=== PATIENT | female | born 1945 | race Caucasian/White ===

== ENCOUNTER 2019-06-11 13:53 | Outpatient (RCR) | payer MEDICARE, BC, SELFPAY | END 2019-07-01 23:59 | disposition home or self-care (01) | LOC: SPT 13:53 | PROVIDERS: Family Provider Internal Medicine; PCP Nurse Practitioner Family; Referring Provider Specialist; Visit Provider Specialist | DX: R42 Dizziness and giddiness (principal) | CPT/HCPCS: 95992; 97162 ==

== ENCOUNTER → 2019-07-21 13:52 | Outpatient (BNVA) | payer MEDICARE, BC, SELFPAY | PROVIDERS: Family Provider Internal Medicine; PCP Nurse Practitioner Family; Visit Provider Nurse Practitioner | DX: K92.1 Melena (principal); E04.9 Nontoxic goiter, unspecified; R10.32 Left lower quadrant pain; K57.30 Diverticulosis of large intestine without perforation or abscess without bleeding | CPT/HCPCS: 80053; 81000; 84443; 85025 ==

== ENCOUNTER 2019-07-29 07:55 | Outpatient (CLI) | payer MEDICARE, BC, SELFPAY ==
--- NOTE | 2019-07-29 08:05 | CT_ITS ---
WS: [id number] CT ABDOMEN PELVIS TECHNIQUE: Noncontrast CT of the abdomen and pelvis with coronal and sagittal reformatted images. CLINICAL INFORMATION: left lower pain COMPARISON: None. DLP: 1161.[address] scans at [facility] use at least one of these dose optimization techniques: automat ed exposure control; mA and/or kV adjustment per patient size (includes targeted exams where dose is matched to clinical indication); or iterative reconstruction. FINDINGS: Noncontrast liver is normal. A few low-attenuation lesions in the liver too small to characterize but likely hepatic cysts. Largest in the dome of the liver measuring 7 mm. Gallbladder is normal. Adrena l glands are normal. No hydronephrosis. No obstructing renal or ureteral calculi. Normal GE junction. Hazy atelectasis in the lung bases. Left pleural thickening. Normal spleen. Nonco ntrast pancreas is normal. Normal caliber abdominal aorta. Aortic calcification. No evidence of small or large bowel obstruction. Sigmoid colon appears normal.A few shoddy periaortic lymph nodes. The largest measuring 8 mm likely r eactive. No inguinal lymphadenopathy. Disc space narrowing L5-S1 with vacuum disc phenomenon. CT/CT abdomen pelvis wo con [id number] IMPRESSION: 1. Sigmoid colon is normal in appearance. No evidence of small or large bowel obstruction. 2. A few low-attenuation lesions in the liver nonspecific but likely hepatic c ysts. 3. No hydronephrosis. No obstructing renal or ureteral calculi. 4. Hazy atelectasis in the lung bases. 5. Sigmoid colon is normal in appearance. No evidence of small or large bowel obstruction. 6. Normal caliber abdominal aorta. 7. 8 mm left periaortic lymph node nonspecific but likely reactive.
[2019-07-29] MEDS: iohexol 300 mg/mL 50 mL Btl PO (09:22)
== END 2019-07-29 07:56 | disposition home or self-care (01) ==
PROVIDERS: Family Provider Internal Medicine; PCP Nurse Practitioner; Visit Provider Nurse Practitioner
DX: R10.32 Left lower quadrant pain (principal); K76.9 Liver disease, unspecified; J98.11 Atelectasis
CPT/HCPCS: 74176

== ENCOUNTER → 2019-11-05 13:41 | Outpatient (BNVA) | payer MEDICARE, BC, SELFPAY | PROVIDERS: Family Provider Internal Medicine; PCP Nurse Practitioner; Visit Provider Nurse Practitioner Family | DX: E06.1 Subacute thyroiditis (principal); R53.82 Chronic fatigue, unspecified; F32.9 Major depressive disorder, single episode, unspecified; Z68.29 Body mass index [BMI] 29.0-29.9, adult; F17.211 Nicotine dependence, cigarettes, in remission; Z79.899 Other long term (current) drug therapy; E55.9 Vitamin D deficiency, unspecified | CPT/HCPCS: 80053; 82306; 82607; 84443; 85025 ==

== ENCOUNTER → 2020-05-07 12:36 | Outpatient (BNVA) | payer MEDICARE, BC, SELFPAY | PROVIDERS: Family Provider Internal Medicine; PCP Nurse Practitioner; Visit Provider Nurse Practitioner Family | DX: Z20.822 Contact with and (suspected) exposure to COVID-19 (principal) | CPT/HCPCS: 87635 ==

== ENCOUNTER → 2020-12-07 15:33 | Outpatient (BNVA) | payer MEDICARE, BC, SELFPAY | PROVIDERS: Family Provider Internal Medicine; PCP Nurse Practitioner; Visit Provider Nurse Practitioner Family | DX: E06.1 Subacute thyroiditis (principal); R07.0 Pain in throat; R53.83 Other fatigue; K57.33 Diverticulitis of large intestine without perforation or abscess with bleeding | CPT/HCPCS: 80053; 82306; 82607; 83540; 83615; 84443; 85025 ==

== ENCOUNTER → 2021-07-05 15:14 | Outpatient (BNVA) | payer MEDICARE, BC, SELFPAY | PROVIDERS: Family Provider Internal Medicine; PCP Nurse Practitioner; Visit Provider Nurse Practitioner Family | DX: E55.9 Vitamin D deficiency, unspecified (principal); W57.XXXA Bitten or stung by nonvenomous insect and other nonvenomous arthropods, initial encounter; Z91.89 Other specified personal risk factors, not elsewhere classified; E06.1 Subacute thyroiditis; R53.83 Other fatigue; R13.10 Dysphagia, unspecified; R07.0 Pain in throat | CPT/HCPCS: 80053; 82306; 85025; 86618; 86666; 86757 ==

== ENCOUNTER 2021-07-20 10:31 | Outpatient (CLI) | payer MEDICARE, BC, SELFPAY ==
--- NOTE | 2021-07-20 11:00 | CT_ITS ---
WS: [id number] CT NECK TECHNIQUE: Contrast-enhanced CT of the neck with coronal and sagittal reformatted images. CLINICAL INFORMATION: E06.1 - Subacute thyroiditis COMPARISON: None. DLP: 258.[address] scans at [facility] use at least one of these dose optimization techniques: automated e xposure control; mA and/or kV adjustment per patient size (includes targeted exams where dose is matc hed to clinical indication); or iterative reconstruction. FINDINGS: Beam hardening artifact from dental artifact degrades images at the tongue base. Parotid glands are n ormal. Submandibular glands are normal. Small polyp or retention cyst within the RIGHT vallecula santa uring 4.5 mm. Recommend direct visualization. Normal epiglottis. Normal glottis. Normal piriform sinu ses. Normal subglottic airway. Normal posterior nasopharynx. Normal parapharyngeal fat. Mastoid air cells are well aerated. Normal p aranasal sinuses. Fibrosis in the lung apices. Normal thyroid gland enhancement. A few tiny thyroid nodules largest in the LEFT measuring 3 mm. 2.5 mm nodule RIGHT posterior thyroid gland. No cervical lymphadenopathy. CT/CT neck w con* [id number] IMPRESSION: 1. Normal salivary glands. 2. A few tiny 2- 3 mm thyroid nodules. Thyroid gland is otherwise normal in ap pearance. 3. No cervical lymphadenopathy. 4. Small polyp or retention cyst within the RIGHT vallecula measuring 4.5 mm. This can be further evaluated with direct visualization. 5. Normal posterior nasopharynx. Otherwise no evidence of supraglottic or glot tic mass.
[2021-07-20] MEDS: iohexol 350 mg/mL 100 mL Btl IV (11:05)
== END 2021-07-20 10:32 | disposition home or self-care (01) ==
LOC: RAD 10:34
PROVIDERS: Family Provider Internal Medicine; PCP Nurse Practitioner Family; Visit Provider Nurse Practitioner Family
DX: E06.1 Subacute thyroiditis (principal); R07.0 Pain in throat; R13.10 Dysphagia, unspecified; R53.83 Other fatigue; E04.2 Nontoxic multinodular goiter
CPT/HCPCS: 70491

== ENCOUNTER 2021-07-26 13:44 | Outpatient (CLI) | payer MEDICARE, BC, SELFPAY ==
--- NOTE | 2021-07-26 14:07 | US_ITS ---
WS: [id number] THYROID ULTRASOUND HISTORY: SUBACUTE THYROIDITIS COMPARISON: Neck CT 07/20/2021 Right lobe: 1.0 cm x 1.4 cm x 4.4 cm (w x ap x l). Volume: 3.4 cm3. Normal size and echotexture. No significant are dominant nodules are present. No nodules identified. Left lobe: 1.1 cm x 1.1 cm x 3.9 cm (w x ap x l). Volume: 2.4 cm3. Normal size and echotexture. No significant or dominant nodules are present. No nodules identified. Isthmus: 0.2 cm. Palpable area as directed by the patient in the LEFT neck corresponds to a benign lymph node adjacent to the submandibular gland. US/US thyroid [id number] IMPRESSION: Normal thyroid ultrasound.
== END 2021-07-26 13:45 | disposition home or self-care (01) ==
LOC: RAD 13:47
PROVIDERS: PCP Nurse Practitioner Family; Visit Provider Nurse Practitioner Family
DX: E06.1 Subacute thyroiditis (principal)
CPT/HCPCS: 76536

== ENCOUNTER 2021-09-19 08:09 | Outpatient (CLI) | payer MEDICARE, BC, SELFPAY ==
--- NOTE | 2021-09-19 08:19 | FL_ITS ---
WS: [id number] Exam: FL barium swallow [id number] Date/Time of Exam: 09/19/2021 8:20 AM Reason For Exam: CERVICALGIA/PAIN IN THROAT Fluoroscopy time: 2min [id number] minutes # of spot films: 12 Swallowing function at the level of oropharynx was normal. No sign of aspiration or penetration. Esop hagus is smooth in contour with normal motility. No sign of esophageal stricture or mass. No hiatal h ernia or gastroesophageal reflux was demonstrated. The esophagus is not displaced. FL/FL barium swallow [id number] IMPRESSION: 1. Normal esophagram.
== END 2021-09-19 08:10 | disposition home or self-care (01) ==
PROVIDERS: PCP Nurse Practitioner Family; Visit Provider Specialist
DX: M54.2 Cervicalgia (principal); R07.0 Pain in throat
CPT/HCPCS: 74220

== ENCOUNTER 2021-09-28 15:25 | Outpatient (CLI) | payer MEDICARE, BC, SELFPAY ==
--- NOTE | 2021-09-28 16:02 | MR_ITS ---
WS: [id number] MRI NECK WITH CONTRAST TECHNIQUE: Noncontrast axial T1, axial T2 FSE fat sat, coronal T2 fat sat, coronal T1, coronal T1 fat sat, sagittal T2 fat sat, plus contrast enhanced coronal, sagittal, and axial T1 fat sat images obta ined. CLINICAL INFORMATION: CERVICALGIA/PAIN IN THROAT COMPARISON: CT neck July 20, 2021. FINDINGS: Edema involving the LEFT C3-C4 facets with surrounding soft tissue edema compatible with sy novitis. This is likely inflammatory or degenerative. Associated enhancement. Recommend correlation f or LEFT dorsal axial neck pain. Again seen is the small polyp or retention cyst within the RIGHT vallecula unchanged from previous me asuring 5 mm. Small amount of peripheral enhancement. Normal epiglottis. Parotid glands are normal in appearance. Normal submandibular glands. Normal posterior nasopharynx. Normal parapharyngeal fat. No rmal glottis and subglottic airway. No cervical lymphadenopathy. Tiny disc protrusions in the cervical spine at C5-C6 and C6-C7. Normal p osterior fossa. Normal vascular flow voids at the skull base. Mastoid air cells are well aerated. Thy roid gland not well evaluated due to motion artifact MR/MR orbit face neck wo/w* [id number] IMPRESSION: 1. Small T2 hyperintense likely retention cyst or polyp in the RIGHT vallecula with peripheral enhancement. This is unchanged since the recent CT. Recommend direct visualization if this has not been performed to exclude neoplasm. 2. Edema involving the LEFT C3-C4 facets with surrounding soft tissue edema co mpatible with synovitis. This is likely inflammatory or degenerative. Associate d enhancement. Recommend correlation for LEFT dorsal axial neck pain. 3. Otherwise no evidence of supraglottic or glottic mass. 4. Normal salivary glands. 5. No cervical lymphadenopathy. 6. Small disc bulges in the cervical spine at C5-C6 and C6-C7.
[2021-09-28] MEDS: gadobenate dimeglumine 20 mL vial IV (17:05)
== END 2021-09-28 15:26 | disposition home or self-care (01) ==
PROVIDERS: PCP Nurse Practitioner Family; Visit Provider Specialist
DX: R07.0 Pain in throat (principal)
CPT/HCPCS: 70543

== ENCOUNTER 2021-10-18 11:30 | Outpatient (CLI) | payer MEDICARE, BC, SELFPAY ==
--- NOTE | 2021-10-18 13:22 | ECG_ITS ---
[facility] Test Date: 2021-10-18 Pat Name: Erika Rice Department: Room: Gender: Female Electrical Tech/Project Manager: : 1945 Requested By: Alex Saucedo Order Number: [id number] Randy MD: Jesus Alcaraz M.D. Measurements Intervals [place] Rate: 76 P: 75 WA: 155 QRS: 66 QRSD: 71 T: 62 QT: 358 QTc: 403 Interpretive Statements SINUS RHYTHM LOW QRS VOLTAGE IN PRECORDIAL LEADS [QRS DEFLECTION < 1.0 mV IN CHEST LEADS] WARNING: DATA QUALITY MAY AFFECT INTERPRETATION Compared to ECG 09/15/2016 19:40:13 Low QRS voltage now present Electronically Signed On 10-18-2021 21:04:15 CDT by Jesus Alcaraz M.D. [email or web address]
== END 2021-10-18 11:31 | disposition home or self-care (01) ==
LOC: RT 11:39
PROVIDERS: PCP Nurse Practitioner Family; Visit Provider Specialist
DX: R13.10 Dysphagia, unspecified (principal); M54.2 Cervicalgia
CPT/HCPCS: 93005

== ENCOUNTER → 2022-02-02 11:10 | Outpatient (BNVA) | payer MEDICARE, BC, SELFPAY | PROVIDERS: PCP Nurse Practitioner Family; Visit Provider Nurse Practitioner Family | DX: J40 Bronchitis, not specified as acute or chronic (principal); R06.2 Wheezing; R05.8 Other specified cough | CPT/HCPCS: 71046; 87486; 87581; 87633 ==

== ENCOUNTER → 2022-02-08 10:54 | Outpatient (BNVA) | payer MEDICARE, BC, SELFPAY | PROVIDERS: PCP Nurse Practitioner Family; Visit Provider Nurse Practitioner Family | DX: J40 Bronchitis, not specified as acute or chronic (principal) | CPT/HCPCS: 71046; 80053; 85007; 85025 ==

== ENCOUNTER 2022-02-28 08:54 | Emergency (ER) | payer MEDICARE, BC, SELFPAY ==
[2022-02-28 08:55] VITALS: BP 148/63; PULSE 90; RESP 19; TEMP 36.8; O2SAT 98; BMI 28.3
[2022-02-28 09:05] VITALS: BP 130/83; PULSE 98; RESP 18; O2SAT 95
--- NOTE | 2022-02-28 09:18 | XRR_ITS ---
PROCEDURE INFORMATION: Exam: XR Chest Exam date and time: 02/28/2022 9:27 AM Age: 77 years old Clinical indication: Cough TECHNIQUE: Imaging protocol: Radiologic exam of the chest. Views: 1 view. COMPARISON: CR XR chest 2V* [id number] 02/08/2022 10:53 AM FINDINGS: Lungs: No focal airspace disease. Pleural spaces: Unremarkable. No pleural effusion. No pneumothorax. Heart/Mediastinum: Cardiomediastinal silhouette is within normal limits. Bones/joints: Unremarkable. XR/XR chest 1V portable [id number] IMPRESSION: No acute cardiopulmonary abnormality.
[2022-02-28 09:24] LABS: Basophils # 0.1 10^3/uL (0.0-0.1); Basophils % 0.8 %; Eosinophils # 1.7 10^3/uL (0.0-0.8); Eosinophils % 19.3 %; Hemoglobin 14.4 g/dL (11.5-15.3); Lymphocytes % 22.6 %; Mean Corpuscular Hemoglobin 31.9 pg (28.0-34.0); Mean Corpuscular Volume 99.6 fl (81-99); Mean Platelet Volume 9.9 fL (7.4-10.4); Monocytes # 0.6 10^3/uL (0.2-0.9); Monocytes % 6.5 %; Neutrophils # 4.55 10^3/uL (1.8-7.7); Neutrophils % 50.6 %; Nucleated Red Blood Cells % 0 %; Platelet Count 245 10^3/cmm (130-400); Red Blood Count 4.52 10^6/uL (4.1-5.3)
[2022-02-28] MEDS: benzonatate 100 mg Capsule 200 MG PO (09:27)
[2022-02-28] MEDS: dexamethasone 10 mg/mL INJ IVP (09:27)
[2022-02-28] MEDS: ipratropium-albuterol 3 mL Neb 9 ML INHALATION (09:34)
[2022-02-28 09:37] VITALS: PULSE 84; RESP 20; O2SAT 96
[2022-02-28 09:44] LABS: Alanine Aminotransferase 17 U/L (0-33); Albumin Level 4.2 g/dL (3.5-5.2); Alkaline Phosphatase 84 U/L (35-105); Anion Gap 13.8 (5-19); Aspartate Amino Transferase 18 U/L (0-32); Blood Urea Nitrogen 8 mg/dL (8-23); Calcium 8.9 mg/dL (8.5-10.5); Carbon Dioxide 29 mmol/L (22-29); Chloride 98 mmol/L (98-107); Creatinine Clr Calc Pharmacy 61.4308; Globulin 2.8 g/dL (1.3-4.6); Glucose 103 mg/dL (65-115); Magnesium 1.9 mg/dL (1.7-2.3); NT Pro B Type Natriuretic Pept 161 pg/mL (0-450); Osmolality Calculated 283 mOsm/kg (285-295); Potassium 3.8 mmol/L (3.5-5.1); Sodium 137 mmol/L (136-145); Total Bilirubin 0.3 mg/dL (0.15-1.2)
[2022-02-28 09:46] VITALS: BP 130/83; PULSE 98; RESP 18; O2SAT 96
[2022-02-28 09:50] VITALS: PULSE 83
--- NOTE | 2022-02-28 09:50 | W.ED.SOB ---
HPI - SOB/Dyspnea General: Chief Complaint: Shortness of Breath/Dyspnea Stated Complaint: Chest Pain/SOB Time Seen by Provider: 02/28/22 09:00 History of Present Illness: HPI Narrative: 77-year-old female who presents with shortness of breath and wheezing. The patient states she has been sick for a month. She has had a cough which has been nonproductive. She has had persistent wheezing despite taking steroids and using albuterol and a nebulizer. She completed a course of Levaquin. She states she stopped taking the steroids because she did not like the way it made her feel. She denies fever. She denies chest pain. She states she does have increased shortness of breath with activity as well as associated orthopnea. She denies peripheral edema. No prior history of DVT or pulmonary emboli. No prior history of COPD or emphysema. She denies a cardiac history. They have not tested her for COVID or flu throughout the course of her illness. Associated symptoms: Reports fever(s); Deny abdominal pain, chest pain, nausea, palpitations or vomiting Review of Systems Const: Reports: fever(s); Denies: chills, body aches or change in appetite Eyes: Denies: change in vision, eye discharge or eye redness ENMT: Denies: throat pain, hoarseness, ear or mastoid pain, ear discharge, nasal discharge or nasal congestion Card: Denies: chest pain, palpitations, irregular heart rhythm or edema Resp: Reports: dyspnea, non-productive cough and wheezing GI: Denies: abdominal pain, nausea, vomiting, diarrhea, constipation or hematochezia : Denies: difficulty voiding, dysuria, urinary frequency, urinary urgency, urinary hesitancy or hematuria Musc: Denies: joint swelling, joint redness, joint warmth or joint stiffness Skin/Breast: Denies: rash Neuro: Denies: headache(s) Psych: Denies: suicidal ideation or homicidal ideation Junaid/Lymph: Denies: enlarged lymph nodes or tender lymph nodes [facility] ED PFSH: Medical History Anemia Depression Vitamin D deficiency Surgical History History of colonoscopy History of hysterectomy Family History Other Cancer Hypertension Parkinsons disease Stroke Social History Smoking and tobacco status: former smoker Quit status (tobacco): has quit using tobacco Year quit tobacco: 1994 Former quit date comment: 0.5 PPD X 35 YEARS Second hand smoke exposure: No Smoking risk assessment/counseling performed?: No Alcohol intake: never Desire information about alcohol rehabilitation?: No Counseling given: No Desire information about substance/drug rehabilitation?: No Counseling given: No Adopted: No Caregiver/support person: Yes Housing: House Marital status: service: No History of recent travel: No Current gender identity: Female Physical Exam Const: COMMON NORMALS: no acute distress and patient oriented x3 GENERAL APPEARANCE: cooperative HENMT: COMMON NORMALS: normocephalic and moist oral mucous membranes HEAD & SCALP: normocephalic Eye: COMMON NORMALS: Equal, round and reactive pupils present GENERAL EYE: appearance normal, both eyes and all related structures PUPIL: Yes Equal, round and reactive pupils present Neck/C-Spine: GENERAL: Yes normal visual inspection CERVICAL SPINE: Yes cervical ROM normal and No Cervical spine tenderness Lymph: LYMPHATIC: no lymphadenopathy noted Chest: COMMONS NORMALS: normal inspection of the chest Resp: OTHER: Diffuse expiratory wheezing in all lung castillo, breath sounds are equal bilaterally Cardio: COMMON NORMALS: regular rate, regular rhythm and No murmurs present (Cardio) RATE: regular rate RHYTHM: regular rhythm Extremity: GENERAL: No cyanosis and No edema Neuro: COMMON NORMALS: patient oriented x3, moves all extremities, no focal motor deficits and gait normal SPEECH: speech normal Psych: COMMON NORMALS: mental status grossly normal Skin: COMMON NORMALS: no rashes or lesions noted and no wounds GENERAL SKIN EXAM: no rashes or lesions noted Course Vital Signs: Vital signs: Vital Signs Temperature 98.3 F 02/28/22 08:55 Pulse Rate 88 02/28/22 11:32 Respiratory Rate 20 H 02/28/22 11:32 Blood Pressure 130/83 02/28/22 09:46 Pulse Oximetry 96 02/28/22 11:32 Oxygen Delivery Me thod 02/28/22 11:32 MDM - SOB/Dyspnea Medical Decision Making 77 old female who comes in with a 1 month history of cough, wheezing and increased difficulty breathing. The patient's already been treated with a round of steroids as well as a round of antibiotics. Today she has diffuse inspiratory and expiratory wheezing. She is not hypoxic, room air saturation is 94%. She has had an IV placed and labs obtained. She has been given IV Decadron 10 mg. She has been given an hour-long DuoNeb nebulizer treatment as well as 2 Xopenex treatments with significant improvement. She still does have expiratory wheezes but is breathing much more comfortably. I did not feel that at this time she warrants admission I feel she is stable for discharge home. I am going to place her on Decadron 4 mg twice daily. I am also getting her prescription for Symbicort inhaler to use 1 puff twice daily. I have given her Tessalon Perles 200 mg to take 3 times daily as needed for cough. I have encouraged her to use her albuterol inhaler 2 puffs every 2-4 hours as needed for shortness of breath and wheezing. She needs to return if her symptoms are worsening. She does need to get set up for follow-up with her primary care doctor. I placed a consult to social work to set her up for that. Return precautions have been discussed Lab Data 02/28/22 09:00 02/28/22 09:00 Labs/Radiology: Radiology Impressions Chest X-Ray 02/28/22 09:18 IMPRESSION: No acute cardiopulmonary abnormality. Laboratory Results WBC 9.0 10^3/uL (4.0-10.0) 02/28/22 09:00 RBC 4.52 10^6/uL (4.1-5.3) 02/28/22 09:00 Hgb 14.4 g/dL (11.5-15.3) 02/28/22 09:00 Hct 45.0 % (37.0-47.0) 02/28/22 09:00 MCV 99.6 fl (81-99) H 02/28/22 09:00 MCH 31.9 pg (28.0-34.0) 02/28/22 09:00 MCHC 32.0 g/dL (30.0-36.0) 02/28/22 09:00 RDW 13.0 % (12.1-15.1) 02/28/22 09:00 Plt Count 245 10^3/cmm (130-400) 02/28/22 09:00 MPV 9.9 fL (7.4-10.4) 02/28/22 09:00 Neut % (Auto) 50.6 % 02/28/22 09:00 Lymph % (Auto) 22.6 % 02/28/22 09:00 [place] % (Auto) 6.5 % 02/28/22 09:00 Eos % (Auto) 19.3 % 02/28/22 09:00 Baso % (Auto) 0.8 % 02/28/22 09:00 Neut # (Auto) 4.55 10^3/uL (1.8-7.7) 02/28/22 09:00 Lymph # (Auto) 2.0 10^3/uL (0.8-4.8) 02/28/22 09:00 [place] # (Auto) 0.6 10^3/uL (0.2-0.9) 02/28/22 09:00 Eos # (Auto) 1.7 10^3/uL (0.0-0.8) H 02/28/22 09:00 Baso # (Auto) 0.1 10^3/uL (0.0-0.1) 02/28/22 09:00 Nucleated RBC % (auto) 0 % 02/28/22 09:00 Nucleated RBCs # 0.0 /100WBC 02/28/22 09:00 Sodium 137 mmol/L (136-145) 02/28/22 09:00 Potassium 3.8 mmol/L (3.5-5.1) 02/28/22 09:00 Chloride 98 mmol/L (98-107) 02/28/22 09:00 Carbon Dioxide 29 mmol/L (22-29) 02/28/22 09:00 Anion Gap 13.8 (5-19) 02/28/22 09:00 BUN 8 mg/dL (8-23) 02/28/22 09:00 Creatinine 0.7 mg/dL (0.5-0.9) 02/28/22 09:00 GFR Calculation Not Reportable 02/28/22 09:00 Glucose 103 mg/dL (65-115) 02/28/22 09:00 Calculated Osmolality 283 mOsm/kg (285-295) L 02/28/22 09:00 Calcium 8.9 mg/dL (8.5-10.5) 02/28/22 09:00 Magnesium 1.9 mg/dL (1.7-2.3) 02/28/22 09:00 Total Bilirubin 0.3 mg/dL (0.15-1.2) 02/28/22 09:00 AST 18 U/L (0-32) 02/28/22 09:00 ALT 17 U/L (0-33) 02/28/22 09:00 Alkaline Phosphatase 84 U/L (35-105) 02/28/22 09:00 NT-Pro-B Natriuret Pep 161 pg/mL (0-450) 02/28/22 09:00 Total Protein 7.0 g/dL (6.6-8.7) 02/28/22 09:00 Albumin 4.2 g/dL (3.5-5.2) 02/28/22 09:00 Globulin 2.8 g/dL (1.3-4.6) 02/28/22 09:00 Influenza Type A Ag negative (Negative) 02/28/22 09:43 Influenza Type B Ag negative (Negative) 02/28/22 09:43 Discharge Plan Discharge Patient Disposition: Home Clinical Impression: Acute exacerbation of chronic obstructive airways disease Condition: Stable Prescriptions: New Decadron 4 mg tablet 4 mg PO Q12H Qty: 14 0RF Symbicort 80-4.5 mcg/actuation HFA aerosol inhaler 2 inh inhalation Q12H Qty: 10.2 0RF benzonatate 200 mg capsule 200 mg PO TID PRN (Reason: cough) Qty: 30 0RF No Action estradiol [Estrace] 1 mg tablet 1 mg PO DAILY sertraline 100 mg tablet 100 mg PO DAILY 30 Days Qty: 30 0RF albuterol sulfate [ProAir HFA] 90 mcg/actuation HFA aerosol inhaler 2 puff inhalation QID PRN (Reason: shortness of breath or wheezing) Qty: 6.7 0RF triamcinolone acetonide 0.1 % ointment 1 applic topical BID Qty: 15 0RF cholecalciferol (vitamin D3) 1,250 mcg (50,000 unit) capsule 50,000 unit PO .weekly 30 Days Qty: 4 2RF amoxicillin-pot clavulanate 875-125 mg tablet 1 tab PO BID Qty: 20 0RF promethazine-DM 6.25-15 mg/5 mL syrup 5 - 10 ml PO Q6H PRN (Reason: cough) Qty: 240 0RF prednisone 20 mg tablet 20 mg PO BID Qty: 20 0RF albuterol sulfate [ProAir HFA] 90 mcg/actuation HFA aerosol inhaler 2 puff inhalation Q4H PRN (Reason: shortness of breath or wheezing) Qty: 6.7 0RF levofloxacin 750 mg tablet 750 mg PO DAILY Qty: 7 0RF prednisone 20 mg tablet 20 mg PO BID Qty: 10 0RF albuterol sulfate 2.5 mg /3 mL (0.083 %) solution for nebulization 2.5 mg inhalation QID PRN (Reason: shortness of breath or wheezing) Qty: 75 0RF (DME) compressor, for nebulizer Device See Rx Instructions .Route Qty: 1 0RF Rx Instructions: As directed (DME) nebulizer accessories Kit See Rx Instructions .Route Qty: 1 0RF Rx Instructions: As directed budesonide 1 mg/2 mL suspension for nebulization 0.5 mg inhalation BID 14 Days Qty: 28 0RF Rx Instructions: 340B fluticasone propionate [Flovent HFA] 110 mcg/actuation HFA aerosol inhaler 2 puff inhalation BID Qty: 12 2RF promethazine-DM 6.25-15 mg/5 mL syrup 5 - 10 ml PO Q6H PRN (Reason: cough) Qty: 240 0RF amoxicillin-pot clavulanate 875-125 mg tablet 1 tab PO BID Qty: 20 0RF potassium chloride [Klor-Con M20] 20 mEq tablet,ER particles/crystals 20 meq PO DAILY Qty: 30 2RF Discharge Orders: Discharge ED (Routine); Ordered 02/28/22 Ordered By: Denisse Baird Referrals: Kianna Ayala FNP-C [Primary Care Provider] - Discharge Diet: Advance as tolerated Discharge Activity: Resume usual activity Patient Instructions: COPD (Chronic Obstructive Pulmonary Disease) (DC), Opioid Safety, Pain Management Activity Restrictions/Additional Instructions: Take the prednisone daily in the morning. Use the Symbicort inhaler 1 puff twice daily. Continue albuterol inhaler 2 puffs every 4 hours and as needed. Take the Tessalon 3 times daily as needed for cough. Return if her symptoms are worsening. Home to rest. Follow-up this week with your primary care doctor. Coding Level of Care Code ED Blow Machine Tender Starch Spraying for Chg Fwd Exam Comprehensive
[2022-02-28 10:20] LABS: Influenza A by IFA negative (Negative); Influenza B by IFA negative (Negative)
[2022-02-28] MEDS: levalbuterol 1.25 mg/3 mL Neb 2.5 MG INHALATION (11:31)
[2022-02-28 11:32] VITALS: PULSE 88; RESP 20; O2SAT 96
--- NOTE | 2022-03-02 10:24 | DCPLANNER ---
Addendum entered by Eugenia Hood 03/31/22 14:42: Patient had a follow up appointment scheduled at [facility] with Dr. Alba to establish care - patient did attend appointment. Original Note: credit office manager had message to speak with patient about getting established with a primary care physician. credit office manager spoke with patient, she stated that she would like to have a new primary care physician. credit office manager called [facility], spoke with Silvana, gave clinic patients information. A follow up appointment was scheduled for March at 1:[address] Alba. credit office manager called patient and gave patient the appointment information.
== END 2022-02-28 13:25 | disposition home or self-care (01) ==
PROVIDERS: Emergency Provider Emergency Medicine; PCP Nurse Practitioner Family
DX: J44.1 Chronic obstructive pulmonary disease with (acute) exacerbation (principal); Z87.891 Personal history of nicotine dependence
CPT/HCPCS: 71045; 80053; 83735; 83880; 85025; 87804; 94640; 96374; 99285; J1100; J7614

== ENCOUNTER 2022-03-01 15:21 | Outpatient (CLI) | payer MEDICARE, BC, SELFPAY ==
--- NOTE | 2022-03-01 16:00 | CT_ITS ---
WS: [id number] CT CHEST TECHNIQUE: Noncontrast CT of the chest with coronal and sagittal reformatted images. CLINICAL INFORMATION: J40 - Bronchitis, not specified as acute or chronic COMPARISON: DLP: 659.[address] scans at [facility] use at least one of these dose optimization techniques: automated e xposure control; mA and/or kV adjustment per patient size (includes targeted exams where dose is matc hed to clinical indication); or iterative reconstruction. FINDINGS: Mild chronic emphysematous changes. A few calcified granulomas. No focal pneumonia or pleural fluid. Minimal tree-in-bud opacities RIGHT middle lobe and both lower lobes. Slight bronchiectasis. Normal caliber thoracic aorta. No mediastinal or hilar lymphadenopathy. No axillary lymphadenopathy. Adrenal glands are normal. Small esophageal hiatal hernia. A few low-attenuation lesions in the liver likely hepatic cysts. CT/CT chest wo con [id number] IMPRESSION: 1. Minimal tree-in-bud opacities RIGHT middle lobe and both lower lobes likely inflammatory. Slight bronchiectasis. 2. No focal pneumonia or pleural fluid. 3. A few calcified granulomas. Subsegmental atelectasis LEFT lower lobe with s light chronic pleural thickening. 4. No mediastinal or hilar lymphadenopathy. 5. No other suspicious findings.
== END 2022-03-01 15:22 | disposition home or self-care (01) ==
LOC: RAD 15:22
PROVIDERS: PCP Nurse Practitioner Family; Visit Provider Nurse Practitioner Family
DX: J40 Bronchitis, not specified as acute or chronic (principal); R05.8 Other specified cough; Z87.891 Personal history of nicotine dependence; J47.9 Bronchiectasis, uncomplicated; J98.11 Atelectasis
CPT/HCPCS: 71250

== ENCOUNTER → 2022-03-09 14:16 | Outpatient (BNVA) | payer MEDICARE, BC, SELFPAY | PROVIDERS: PCP Nurse Practitioner Family; Visit Provider Family Medicine | DX: J40 Bronchitis, not specified as acute or chronic (principal); D72.10 Eosinophilia, unspecified; J47.9 Bronchiectasis, uncomplicated; R53.82 Chronic fatigue, unspecified; Z76.89 Persons encountering health services in other specified circumstances; R07.0 Pain in throat; E06.1 Subacute thyroiditis | CPT/HCPCS: 80053; 80061; 84439; 84443; 85025; 85651; 86140 ==

== ENCOUNTER 2022-05-09 12:57 | Outpatient (CLI) | payer MEDICARE, SELFPAY ==
--- NOTE | 2022-05-09 13:14 | XRR_ITS ---
PROCEDURE INFORMATION: Exam: XR Left Hand Exam date and time: 05/09/2022 1:30 PM Age: 77 years old Clinical indication: Injury or trauma; Fall; Blunt trauma (contusions or hematomas); Left; Patient HX: Lt hand pain thumb area PT fell on ice 1 week ago; Additional info: Hand injury TECHNIQUE: Imaging protocol: Radiologic exam of the Left hand. Views: 3 or more views. COMPARISON: No relevant prior studies available. FINDINGS: Bones/joints: There are mild degenerative changes 1st carpometacarpal joint. Remaining joint surfaces are preserved. There is no fracture, dislocation or malalignment detected. Soft tissues: Unremarkable. XR/XR hand LT min 3V* [id number] IMPRESSION: No acute bony abnormalities.
== END 2022-05-09 12:58 | disposition home or self-care (01) ==
PROVIDERS: PCP Family Medicine; Visit Provider Emergency Medicine
DX: S69.92XA Unspecified injury of left wrist, hand and finger(s), initial encounter (principal); X58.XXXA Exposure to other specified factors, initial encounter
CPT/HCPCS: 73130

== ENCOUNTER → 2022-07-04 14:39 | Outpatient (BNVA) | payer MEDICARE, SELFPAY | PROVIDERS: PCP Family Medicine; Visit Provider Internal Medicine Pulmonary Disease | DX: R06.02 Shortness of breath (principal); R13.10 Dysphagia, unspecified; R07.0 Pain in throat; Z91.89 Other specified personal risk factors, not elsewhere classified; W57.XXXA Bitten or stung by nonvenomous insect and other nonvenomous arthropods, initial encounter | CPT/HCPCS: 36415; 82785; 86003; 99204 ==

== ENCOUNTER 2022-07-13 09:11 | Outpatient (CLI) | payer MEDICARE, SELFPAY ==
--- NOTE | 2022-07-13 09:15 | FL_ITS ---
WS: [id number] EXAMINATION: FL barium swallow [id number] REASON FOR EXAM: History of aspiration cough when eating ORDER DATE: 07/13/2022 9:23 AM COMPARISON: 11/19/2021 TECHNIQUE: The patient was able to swallow thick barium for the esophagram. Cine-fluoroscopy with rapid sequence imaging was obtained while the patient swallowed. The patient was also placed supine and in various recumbent positions during the exam. FINDINGS: There was a trickle of silent aspiration on 2 episodes of swallowing liquid contrast which is seen co ating the anterior tracheal wall. There was increased retention of contrast noted in the piriform sin uses occasionally. There was a normal mucosal fold pattern in the upper esophagus. There is no sign of diverticula, webs or stricture. There was a mild delay in contrast emptying from the esophagus into the stomach. Dysmo tility as a result of tertiary contraction waves delayed esophageal emptying. There was a small slidi ng hiatal hernia. With provocative maneuvers no gastroesophageal reflux was initiated. The distal eso phageal mucosal pattern is unremarkable. FL/FL barium swallow [id number] IMPRESSION: 1. SILENT ASPIRATION RECOMMEND MODIFIED FOLLOWING STUDY STUDY FOR FURTHER EVALU ATION 2. PRESBYESOPHAGUS, MILD CONTRAST RETENTION IN THE PIRIFORM SINUSES WHICH MAY I N PART BE RELATED TO ASPIRATION.. 3. HIATAL HERNIA WITHOUT GASTROESOPHAGEAL REFLUX. FLUOROSCOPY TIME: 0min [id number] # OF SPOT FILMS: 8
== END 2022-07-13 09:12 | disposition home or self-care (01) ==
PROVIDERS: PCP Family Medicine; Visit Provider Internal Medicine Pulmonary Disease
DX: R07.0 Pain in throat (principal); R13.10 Dysphagia, unspecified; K22.89 Other specified disease of esophagus; K44.9 Diaphragmatic hernia without obstruction or gangrene
CPT/HCPCS: 74220

== ENCOUNTER 2022-08-01 10:00 | Outpatient (CLI) | payer MEDICARE, SELFPAY ==
--- NOTE | 2022-08-01 10:45 | FL_ITS ---
WS: [email or web address] FL barium swallow modifd [id number] REASON FOR EXAM: Coughing with oral intake. FLUOROSCOPY TIME: 2min [id number] # OF SPOT FILMS: 0 FINDINGS: Examination was supervised by the speech therapy department. With the patient in the sitting upright position and lateral projection the swallowing of multiple co nsistencies of barium was monitored fluoroscopically and via recorded. No aspiration was identified during the examination. Detailed analysis and report will be rendered by the speech therapy department. FL/FL barium swallow modifd [id number] IMPRESSION: Modified barium swallow as above.
== END 2022-08-01 10:01 | disposition home or self-care (01) ==
LOC: RAD 10:11
PROVIDERS: PCP Family Medicine; Visit Provider Internal Medicine Pulmonary Disease
DX: T17.900A Unspecified foreign body in respiratory tract, part unspecified causing asphyxiation, initial encounter (principal); X58.XXXA Exposure to other specified factors, initial encounter
CPT/HCPCS: 74230; 92611

== ENCOUNTER 2022-08-10 10:03 | Outpatient (CLI) | payer MEDICARE, SELFPAY ==
[2022-08-10 10:25] VITALS: PULSE 89; RESP 18; O2SAT 95
[2022-08-10] MEDS: albuterol 2.5 mg/3 mL Neb INHALATION (10:25)
[2022-08-10 10:30] VITALS: PULSE 93
== END 2022-08-10 10:04 | disposition home or self-care (01) ==
LOC: RT 10:05
PROVIDERS: PCP Family Medicine; Visit Provider Internal Medicine Pulmonary Disease
DX: R06.02 Shortness of breath (principal)
CPT/HCPCS: 94060; 94618; 94726; 94729; J7613

== ENCOUNTER → 2022-09-11 10:13 | Outpatient (BNVA) | payer MEDICARE, SELFPAY | PROVIDERS: PCP Family Medicine; Visit Provider Internal Medicine Pulmonary Disease | DX: J47.9 Bronchiectasis, uncomplicated (principal); Z87.891 Personal history of nicotine dependence; R13.10 Dysphagia, unspecified | CPT/HCPCS: 99214 ==

== ENCOUNTER 2022-11-17 14:18 | Outpatient (CLI) | payer MEDICARE, SELFPAY ==
--- NOTE | 2022-11-17 15:25 | XRR_ITS ---
PROCEDURE INFORMATION: Exam: XR Left Hip Exam date and time: 11/17/2022 3:28 PM Age: 77 years old Clinical indication: Hip pain; Left hip; Additional info: M25.552 - pain in left hip TECHNIQUE: Imaging protocol: Radiologic exam of the left hip. Views: 2 or 3 views hip with pelvis when performed. COMPARISON: CT abdomen pelvis wo con [id number] 07/29/2019 9:51 AM FINDINGS: Bones/joints: Unremarkable. No acute fracture. Soft tissues: Unremarkable. XR/XR hip LT 2-3V wo/w pel* [id number] IMPRESSION: No acute findings.
== END 2022-11-17 14:19 | disposition home or self-care (01) ==
PROVIDERS: PCP Nurse Practitioner Family; Visit Provider Nurse Practitioner Family
DX: M25.552 Pain in left hip (principal)
CPT/HCPCS: 73502

== ENCOUNTER 2022-12-23 16:19 | Emergency (ER) | payer MEDICARE, SELFPAY ==
[2022-12-23 16:24] VITALS: BP 122/73; PULSE 92; RESP 17; TEMP 36.9; O2SAT 96; BMI 28.3
--- NOTE | 2022-12-23 17:03 | ED_ITS ---
Documented by User: Nicanor Vickers DO 12/24/22 15:00 HPI - Fall General: Chief Complaint: Fall Stated Complaint: maybe stroke Time Seen by Provider: 12/23/22 16:56 Source: patient Mode of arrival: ambulatory History of Present Illness: 77-year-old female who comes in complaining of falls. She states she is had multiple falls dating back into September. She does see a neurologist for balance and gait disturbance for which she has been referred to physical therapy and neurologist is in [place]. Now she is having what she describes as weakness spells for the last 2 weeks where she feels like her legs just will not hold her up. Additionally she had some cough cold symptoms became concerned because of fatigue and ended up doing a COVID test yesterday which was positive. She is otherwise awake and alert has no asymmetry. Around 10:00 today the family thought her speech was a little affected but it seems resolved now. Associated symptoms-after fall: Denies abdominal pain, chest pain, confusion, difficulty walking, headache(s), hematuria, lightheadedness, neck pain, numbness, short of breath, vertigo or weakness Review of Systems Const: Reports: body aches and change in appetite; Denies: fever(s), chills, fatigue or malaise Card: Denies: chest pain or lightheadedness Resp: Reports: non-productive cough; Denies: dyspnea or productive cough GI: Denies: abdominal pain, nausea or vomiting : Denies: dysuria, urinary frequency, urinary urgency or hematuria Musc: Denies: neck pain Skin/Breast: Denies: rash or pruritus Neuro: Reports: weakness in extremities, frequent falls and dizziness; Denies: headache(s), difficulty walking, vertigo or confusion [facility] PFSH: Medical History Anemia Depression Vitamin D deficiency Surgical History History of colonoscopy History of hysterectomy Family History Father Stroke Mother Dementia Parkinsons disease Sister Cancer colon/stomach Sister Cerebral hemorrhage, acute Other Hypertension Social History Smoking and tobacco status: former smoker Quit status (tobacco): has quit using tobacco Year quit tobacco: 1994 Former quit date comment: 1 PPD X 35 YEARS Second hand smoke exposure: No Smoking risk assessment/counseling performed?: No Alcohol intake: never Desire information about alcohol rehabilitation?: No Counseling given: No Substance/Drug Use: never Desire information about substance/drug rehabilitation?: No Counseling given: No Adopted: No Caregiver/support person: Yes Housing: House Marital status: service: No Do you think of yourself as: Straight/Heterosexual Current gender identity: Female Female Reproductive History: Spontaneous abortions: No Physical Exam Const: COMMON NORMALS: no acute distress GENERAL APPEARANCE: cooperative and comfortable ORIENTATION/CONSCIOUSNESS: Yes awake, Yes oriented to person, Yes oriented to place and Yes oriented to time HENMT: COMMON NORMALS: normocephalic, atraumatic and hearing grossly normal bilaterally HEAD & SCALP: normocephalic and atraumatic Resp: COMMON NORMALS: normal respiratory effort, No retractions, No use of accessory muscles and clear to auscultation bilaterally AUSCULTATION: clear to auscultation bilaterally Cardio: COMMON NORMALS: regular rate, regular rhythm and No murmurs present (Cardio) RATE: regular rate RHYTHM: regular rhythm GI: COMMON NORMALS: Soft to palpation and No hepatosplenomegaly present AUSCULTATION: Yes normoactive bowel sounds PALPATION: Yes Soft to palpation, No Tenderness to palpation present (GI), No Guarding due to palpation present (GI) and Yes No hepatosplenomegaly present Extremity: COMMON NORMALS: normal to inspection, capillary refill normal, no clubbing, cyanosis or edema, no calf tenderness and no pedal edema Neuro: SENSORIUM/ORIENTATION: Yes oriented to person, Yes oriented to place and Yes oriented to time Skin: COMMON NORMALS: no rashes or lesions noted GENERAL SKIN EXAM: no rashes or lesions noted Course Vital Signs: Vital signs: Vital Signs Temperature 98.5 F 12/23/22 16:24 Pulse Rate 79 12/23/22 18:45 Respiratory Rate 17 12/23/22 18:45 Blood Pressure 112/74 12/23/22 17:14 Pulse Oximetry 93 12/23/22 18:45 Oxygen Delivery Me thod Room Air 12/23/22 17:14 MDM - Fall Medical Decision Making Care signed out to Dr. Chacon at change of shift. See final notes for diagnosis and disposition. 77-year-old female checked out to me at shift change by Dr. Tolliver. This lady has had an increase in her fall history. She tested positive for COVID yesterday at home. Her vitals have been normal here. CBC is normal. BMP shows a mildly low sodium of 130, otherwise not remarkable. Hip x-ray shows no acute findings. On Dr. Tolliver's exam, NIH stroke scale is 0. The family is wanting to go. Without significant lab findings, no neurological symptoms currently, clinically this is appropriate. We will put her on Paxlovid for treatment of COVID-19, as the hope would be to get her over symptoms quick enough that she does not worsen in terms of weakness. To return if any worsening symptoms despite treatment. Close outpatient follow-up. Lab Data 12/23/22 17:41 12/23/22 17:41 Radiology Impressions Hip/Pelvis X-Ray 12/23/22 17:09 IMPRESSION: No acute findings. Laboratory Results WBC 7.18 10^3/uL (3.29-11.43) 12/23/22 17:41 RBC 4.14 10^6/uL (3.85-5.65) 12/23/22 17:41 Hgb 13.30 g/dL (11.27-16.99) 12/23/22 17:41 Hct 40.9 % (36-47) 12/23/22 17:41 MCV 98.8 fl (85-98) H 12/23/22 17:41 MCH 32.1 pg (27-33) 12/23/22 17:41 MCHC 32.5 g/dL (30-55) 12/23/22 17:41 RDW 12.4 % (12.1-15.1) 12/23/22 17:41 Plt Count 208 10^3/cmm (157-399) 12/23/22 17:41 MPV 9.3 fL (7.4-10.4) 12/23/22 17:41 Neut % (Auto) 87.1 % 12/23/22 17:41 Lymph % (Auto) 7.8 % 12/23/22 17:41 Stevens % (Auto) 4.0 % 12/23/22 17:41 Eos % (Auto) 0.1 % 12/23/22 17:41 Baso % (Auto) 0.7 % 12/23/22 17:41 Neut # (Auto) 6.25 10^3/uL (1.8-7.7) 12/23/22 17:41 Lymph # (Auto) 0.6 10^3/uL (0.8-4.8) L 12/23/22 17:41 Stevens # (Auto) 0.3 10^3/uL (0.2-0.9) 12/23/22 17:41 Eos # (Auto) 0.0 10^3/uL (0.0-0.8) 12/23/22 17:41 Baso # (Auto) 0.1 10^3/uL (0.0-0.1) 12/23/22 17:41 Nucleated RBC % (auto) 0 % 12/23/22 17:41 Nucleated RBCs # 0.0 /100WBC 12/23/22 17:41 Sodium 130 mmol/L (136-145) L 12/23/22 17:41 Potassium 3.5 mmol/L (3.5-5.1) 12/23/22 17:41 Chloride 95 mmol/L (98-107) L 12/23/22 17:41 Carbon Dioxide 25 mmol/L (22-29) 12/23/22 17:41 Anion Gap 13.5 (5-19) 12/23/22 17:41 BUN 9 mg/dL (8-23) 12/23/22 17:41 Creatinine 0.7 mg/dL (0.5-0.9) 12/23/22 17:41 GFR Calculation Not Reportable 12/23/22 17:41 Glucose 119 mg/dL (65-115) H 12/23/22 17:41 Calculated Osmolality 270 mOsm/kg (285-295) L 12/23/22 17:41 Calcium 8.4 mg/dL (8.5-10.5) L 12/23/22 17:41 Total Bilirubin 0.3 mg/dL (0.15-1.2) 12/23/22 17:41 AST 18 U/L (0-32) 12/23/22 17:41 ALT 15 U/L (0-33) 09/23/23 17:41 Alkaline Phosphatase 90 U/L (35-105) 12/23/22 17:41 Total Protein 6.5 g/dL (6.6-8.7) L 12/23/22 17:41 Albumin 4.3 g/dL (3.5-5.2) 12/23/22 17:41 Globulin 2.2 g/dL (1.3-4.6) 12/23/22 17:41 Discharge Plan Discharge Patient Disposition: Home Clinical Impression: Generalized weakness, COVID-19 Condition: Stable Prescriptions: New Paxlovid 300 mg (150 mg x 2)-100 mg tablets,dose pack See Rx Instructions .ROUTE .COMPLEX Qty: 30 0RF Rx Instructions: take TWO 150 mg tablets of nirmatrelvir with ONE 100 mg tablet of ritonavir twice daily for 5 days No Action estradiol [Estrace] 1 mg tablet 1 mg PO DAILY triamcinolone acetonide 0.1 % ointment 1 applic topical BID Qty: 15 0RF benzonatate 200 mg capsule 200 mg PO TID PRN (Reason: cough) Qty: 30 0RF montelukast [Singulair] 10 mg tablet 10 mg PO DAILY Qty: 30 3RF albuterol sulfate [ProAir HFA] 90 mcg/actuation HFA aerosol inhaler 2 puff inhalation QID PRN (Reason: shortness of breath or wheezing) Qty: 8.5 3RF formoterol fumarate 20 mcg/2 mL solution for nebulization 2 ml inhalation Q12H Qty: 60 3RF budesonide 1 mg/2 mL suspension for nebulization 0.5 mg inhalation BID Qty: 60 5RF Rx Instructions: 340B albuterol sulfate 2.5 mg /3 mL (0.083 %) solution for nebulization 2.5 mg inhalation QID PRN (Reason: shortness of breath or wheezing) Qty: 75 5RF (DME) BD Integra Syringe 3 mL 25 gauge x 5/8 syringe See Rx Instructions .Route Qty: 1 2RF Rx Instructions: once monthly with B12 azithromycin 250 mg tablet See Rx Instructions PO .COMPLEX Qty: 6 2RF Rx Instructions: For 250 mg dose pack: take 500 mg today (day 1), then 250 mg for 4 days (days 2-5) PO Trelegy Ellipta 200-62.5-25 mcg blister with device 1 inh inhalation DAILY Qty: 60 5RF prednisone 20 mg tablet 20 mg PO BID Qty: 10 0RF levofloxacin 500 mg tablet 500 mg PO DAILY Qty: 7 0RF promethazine-DM 6.25-15 mg/5 mL syrup 5 - 10 ml PO Q6H PRN (Reason: cough) Qty: 240 0RF Mucinex 1,200 mg tablet extended release 12hr 1,200 mg PO BID Qty: 60 0RF cyclobenzaprine 5 mg tablet 5 mg PO TID PRN (Reason: muscle spasm) Qty: 30 0RF cyanocobalamin (vitamin B-12) 1,000 mcg/mL solution 1,000 mcg IM .monthly Qty: 1 5RF sertraline 100 mg tablet 200 mg PO DAILY 90 Days Qty: 180 2RF baclofen 10 mg tablet 10 mg PO DAILY Qty: 90 1RF estradiol 1 mg tablet 1 mg PO DAILY Qty: 30 3RF furosemide 20 mg tablet 20 mg PO DAILY PRN (Reason: edema) Qty: 30 0RF Zyrtec 10 mg capsule 10 mg PO DAILY Qty: 30 6RF Discharge Orders: Discharge ED (Routine); Ordered 12/23/22 Ordered By: Jaguar Chacon Referrals: Kianna Ayala FNP-C [Primary Care Provider] - 1-3 days Patient Instructions: Weakness (ED), COVID-19 (Coronavirus Disease 2019) (ED) Activity Restrictions/Additional Instructions: Your work-up did not reveal a specific cause of your weakness in the emergency department today. Generalized weakness can be exacerbated/made worse by COVID- 19 infection. Medication prescribed halts the replication of the virus in your system, helping to prevent symptoms from getting worse, and speeding recovery. Make sure you stay hydrated. Return for worsening shortness of breath, lethargy, other concerning symptoms. See your doctor next week. 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[employer] NIH stroke score NIHSS Level Of Consciousness - 1a: 0 Level Of Consciousness Questions - 1b: Both Correct Level Of Consciousness Commands - 1c: Both Correct Best Gaze - 2: Normal Visual Steen - 3: No Visual Loss Facial Palsy - 4: Normal Motor Arm Right - 5: No Drift Motor Arm Left - 5: No Drift Motor Leg Right - 6: No Drift Motor Leg Left - 6: No Drift Limb Ataxia - 7: Absent Sensory - 8: Normal Best Language - 9: No Aphasia Dysarthia - 10: Normal Extinction And Inattention - 11: 0 Score Total Score: 0 Documented by User: Jaguar Chacon DO 12/23/22 21:17 HPI - Fall General: Chief Complaint: Fall Stated Complaint: maybe stroke Time Seen by Provider: 12/23/22 16:56 PFSH ED PFSH: Medical History Anemia Depression Vitamin D deficiency Surgical History History of colonoscopy History of hysterectomy Family History Father Stroke Mother Dementia Parkinsons disease Sister Cancer colon/stomach Sister Cerebral hemorrhage, acute Other Hypertension Social History Smoking and tobacco status: former smoker Quit status (tobacco): has quit using tobacco Year quit tobacco: 1994 Former quit date comment: 1 PPD X 35 YEARS Second hand smoke exposure: No Smoking risk assessment/counseling performed?: No Alcohol intake: never Desire information about alcohol rehabilitation?: No Counseling given: No Substance/Drug Use: never Desire information about substance/drug rehabilitation?: No Counseling given: No Adopted: No Caregiver/support person: Yes Housing: House Marital status: service: No Do you think of yourself as: Straight/Heterosexual Current gender identity: Female Course Vital Signs: Vital signs: Vital Signs Temperature 98.5 F 12/23/22 16:24 Pulse Rate 79 12/23/22 18:45 Respiratory Rate 17 12/23/22 18:45 Blood Pressure 112/74 12/23/22 17:14 Pulse Oximetry 93 12/23/22 18:45 Oxygen Delivery Ri thod Room Air 12/23/22 17:14 MDM - Fall Medical Decision Making 77-year-old female checked out to me at shift change by Dr. Tolliver. This lady has had an increase in her fall history. She tested positive for COVID yesterday at home. Her vitals have been normal here. CBC is normal. BMP shows a mildly low sodium of 130, otherwise not remarkable. Hip x-ray shows no acute findings. On Dr. Tolliver's exam, NIH stroke scale is 0. The family is wanting to go. Without significant lab findings, no neurological symptoms currently, clinically this is appropriate. We will put her on Paxlovid for treatment of COVID-19, as the hope would be to get her over symptoms quick enough that she does not worsen in terms of weakness. To return if any worsening symptoms despite treatment. Close outpatient follow-up. Lab Data 12/23/22 17:41 12/23/22 17:41 Radiology Impressions Hip/Pelvis X-Ray 12/23/22 17:09 IMPRESSION: No acute findings. Laboratory Results WBC 7.18 10^3/uL (3.29-11.43) 12/23/22 17:41 RBC 4.14 10^6/uL (3.85-5.65) 12/23/22 17:41 Hgb 13.30 g/dL (11.27-16.99) 12/23/22 17:41 Hct 40.9 % (36-47) 12/23/22 17:41 MCV 98.8 fl (85-98) H 12/23/22 17:41 MCH 32.1 pg (27-33) 12/23/22 17:41 MCHC 32.5 g/dL (30-55) 12/23/22 17:41 RDW 12.4 % (12.1-15.1) 12/23/22 17:41 Plt Count 208 10^3/cmm (157-399) 12/23/22 17:41 MPV 9.3 fL (7.4-10.4) 12/23/22 17:41 Neut % (Auto) 87.1 % 12/23/22 17:41 Lymph % (Auto) 7.8 % 12/23/22 17:41 Stevens % (Auto) 4.0 % 12/23/22 17:41 Eos % (Auto) 0.1 % 12/23/22 17:41 Baso % (Auto) 0.7 % 12/23/22 17:41 Neut # (Auto) 6.25 10^3/uL (1.8-7.7) 12/23/22 17:41 Lymph # (Auto) 0.6 10^3/uL (0.8-4.8) L 12/23/22 17:41 Stevens # (Auto) 0.3 10^3/uL (0.2-0.9) 12/23/22 17:41 Eos # (Auto) 0.0 10^3/uL (0.0-0.8) 12/23/22 17:41 Baso # (Auto) 0.1 10^3/uL (0.0-0.1) 12/23/22 17:41 Nucleated RBC % (auto) 0 % 12/23/22 17:41 Nucleated RBCs # 0.0 /100WBC 12/23/22 17:41 Sodium 130 mmol/L (136-145) L 12/23/22 17:41 Potassium 3.5 mmol/L (3.5-5.1) 12/23/22 17:41 Chloride 95 mmol/L (98-107) L 12/23/22 17:41 Carbon Dioxide 25 mmol/L (22-29) 12/23/22 17:41 Anion Gap 13.5 (5-19) 12/23/22 17:41 BUN 9 mg/dL (8-23) 12/23/22 17:41 Creatinine 0.7 mg/dL (0.5-0.9) 12/23/22 17:41 GFR Calculation Not Reportable 12/23/22 17:41 Glucose 119 mg/dL (65-115) H 12/23/22 17:41 Calculated Osmolality 270 mOsm/kg (285-295) L 12/23/22 17:41 Calcium 8.4 mg/dL (8.5-10.5) L 12/23/22 17:41 Total Bilirubin 0.3 mg/dL (0.15-1.2) 12/23/22 17:41 AST 18 U/L (0-32) 12/23/22 17:41 ALT 15 U/L (0-33) 12/23/22 17:41 Alkaline Phosphatase 90 U/L (35-105) 12/23/22 17:41 Total Protein 6.5 g/dL (6.6-8.7) L 12/23/22 17:41 Albumin 4.3 g/dL (3.5-5.2) 12/23/22 17:41 Globulin 2.2 g/dL (1.3-4.6) 12/23/22 17:41 All radiology interpretation(s) finalized by discharge Discharge Plan Discharge Patient Disposition: Home Clinical Impression: Generalized weakness, COVID-19 Condition: Stable Prescriptions: New Paxlovid 300 mg (150 mg x 2)-100 mg tablets,dose pack See Rx Instructions .ROUTE .COMPLEX Qty: 30 0RF Rx Instructions: take TWO 150 mg tablets of nirmatrelvir with ONE 100 mg tablet of ritonavir twice daily for 5 days No Action estradiol [Estrace] 1 mg tablet 1 mg PO DAILY triamcinolone acetonide 0.1 % ointment 1 applic topical BID Qty: 15 0RF benzonatate 200 mg capsule 200 mg PO TID PRN (Reason: cough) Qty: 30 0RF montelukast [Singulair] 10 mg tablet 10 mg PO DAILY Qty: 30 3RF albuterol sulfate [ProAir HFA] 90 mcg/actuation HFA aerosol inhaler 2 puff inhalation QID PRN (Reason: shortness of breath or wheezing) Qty: 8.5 3RF formoterol fumarate 20 mcg/2 mL solution for nebulization 2 ml inhalation Q12H Qty: 60 3RF budesonide 1 mg/2 mL suspension for nebulization 0.5 mg inhalation BID Qty: 60 5RF Rx Instructions: 340B albuterol sulfate 2.5 mg /3 mL (0.083 %) solution for nebulization 2.5 mg inhalation QID PRN (Reason: shortness of breath or wheezing) Qty: 75 5RF (DME) BD Integra Syringe 3 mL 25 gauge x 5/8 syringe See Rx Instructions .Route Qty: 1 2RF Rx Instructions: once monthly with B12 azithromycin 250 mg tablet See Rx Instructions PO .COMPLEX Qty: 6 2RF Rx Instructions: For 250 mg dose pack: take 500 mg today (day 1), then 250 mg for 4 days (days 2-5) PO Trelegy Ellipta 200-62.5-25 mcg blister with device 1 inh inhalation DAILY Qty: 60 5RF prednisone 20 mg tablet 20 mg PO BID Qty: 10 0RF levofloxacin 500 mg tablet 500 mg PO DAILY Qty: 7 0RF promethazine-DM 6.25-15 mg/5 mL syrup 5 - 10 ml PO Q6H PRN (Reason: cough) Qty: 240 0RF Mucinex 1,200 mg tablet extended release 12hr 1,200 mg PO BID Qty: 60 0RF cyclobenzaprine 5 mg tablet 5 mg PO TID PRN (Reason: muscle spasm) Qty: 30 0RF cyanocobalamin (vitamin B-12) 1,000 mcg/mL solution 1,000 mcg IM .monthly Qty: 1 5RF sertraline 100 mg tablet 200 mg PO DAILY 90 Days Qty: 180 2RF baclofen 10 mg tablet 10 mg PO DAILY Qty: 90 1RF estradiol 1 mg tablet 1 mg PO DAILY Qty: 30 3RF furosemide 20 mg tablet 20 mg PO DAILY PRN (Reason: edema) Qty: 30 0RF Zyrtec 10 mg capsule 10 mg PO DAILY Qty: 30 6RF Discharge Orders: Discharge ED (Routine); Ordered 12/23/22 Ordered By: Jaguar Chacon Referrals: Kianna Ayala FNP-C [Primary Care Provider] - 1-3 days Patient Instructions: Weakness (ED), COVID-19 (Coronavirus Disease 2019) (ED) Activity Restrictions/Additional Instructions: Your work-up did not reveal a specific cause of your weakness in the emergency department today. Generalized weakness can be exacerbated/made worse by COVID- 19 infection. Medication prescribed halts the replication of the virus in your system, helping to prevent symptoms from getting worse, and speeding recovery. Make sure you stay hydrated. Return for worsening shortness of breath, lethargy, other concerning symptoms. See your doctor next week. 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
--- NOTE | 2022-12-23 17:09 | XRR_ITS ---
PROCEDURE INFORMATION: Exam: XR Left Hip Exam date and time: 12/23/2022 5:42 PM Age: 77 years old Clinical indication: Injury or trauma; Fall; Blunt trauma (contusions or hematomas); Left; Hip; Additional info: Trauma/fall TECHNIQUE: Imaging protocol: Radiologic exam of the left hip. Views: 2 or 3 views hip with pelvis when performed. COMPARISON: CR XR hip LT 2-3V wo/w pel* [id number] 11/17/2022 3:28 PM FINDINGS: Bones/joints: Unremarkable. No acute fracture. Soft tissues: Unremarkable. XR/XR hip LT 2-3V wo/w pel* [id number] IMPRESSION: No acute findings.
[2022-12-23 17:14] VITALS: BP 112/74; PULSE 84; RESP 15; O2SAT 93
[2022-12-23 17:49] LABS: Basophils # 0.1 10^3/uL (0.0-0.1); Basophils % 0.7 %; Eosinophils % 0.1 %; Hematocrit 40.9 % (36-47); Lymphocytes # 0.6 10^3/uL (0.8-4.8); Lymphocytes % 7.8 %; Mean Corpuscular HGB Conc 32.5 g/dL (30-55); Mean Corpuscular Hemoglobin 32.1 pg (27-33); Mean Corpuscular Volume 98.8 fl (85-98); Mean Platelet Volume 9.3 fL (7.4-10.4); Monocytes # 0.3 10^3/uL (0.2-0.9); Neutrophils # 6.25 10^3/uL (1.8-7.7); Neutrophils % 87.1 %; Nucleated Red Blood Cells % 0 %; Platelet Count 208 10^3/cmm (157-399); Red Blood Count 4.14 10^6/uL (3.85-5.65); Red Cell Distribution Width 12.4 % (12.1-15.1); White Blood Count 7.18 10^3/uL (3.29-11.43)
[2022-12-23 18:12] LABS: Alanine Aminotransferase 15 U/L (0-33); Albumin Level 4.3 g/dL (3.5-5.2); Alkaline Phosphatase 90 U/L (35-105); Anion Gap 13.5 (5-19); Aspartate Amino Transferase 18 U/L (0-32); Blood Urea Nitrogen 9 mg/dL (8-23); Calcium 8.4 mg/dL (8.5-10.5); Carbon Dioxide 25 mmol/L (22-29); Chloride 95 mmol/L (98-107); Creatinine Clr Calc Pharmacy 61.4308; Globulin 2.2 g/dL (1.3-4.6); Glucose 119 mg/dL (65-115); Osmolality Calculated 270 mOsm/kg (285-295); Potassium 3.5 mmol/L (3.5-5.1); Sodium 130 mmol/L (136-145); Total Bilirubin 0.3 mg/dL (0.15-1.2); Total Protein 6.5 g/dL (6.6-8.7)
[2022-12-23 18:45] VITALS: PULSE 79; RESP 17; O2SAT 93
== END 2022-12-23 18:46 | disposition home or self-care (01) ==
PROVIDERS: Emergency Provider Family Medicine; PCP Nurse Practitioner Family
DX: U07.1 COVID-19 (principal); Z87.891 Personal history of nicotine dependence
CPT/HCPCS: 73502; 80053; 85025; 99284

== ENCOUNTER → 2023-01-08 12:23 | Outpatient (BNVA) | payer MEDICARE, SELFPAY | PROVIDERS: PCP Nurse Practitioner Family; Visit Provider Family Medicine | DX: R30.0 Dysuria (principal); R29.6 Repeated falls; R42 Dizziness and giddiness; R07.0 Pain in throat | CPT/HCPCS: 80048; 81000; 82607; 82746; 84443; 85651; 86140 ==

== ENCOUNTER → 2023-05-14 10:52 | Outpatient (BNVA) | payer MEDICARE, SELFPAY | PROVIDERS: PCP Nurse Practitioner Family; Visit Provider Internal Medicine Pulmonary Disease | DX: R06.02 Shortness of breath (principal); J44.9 Chronic obstructive pulmonary disease, unspecified; J47.9 Bronchiectasis, uncomplicated; Z87.891 Personal history of nicotine dependence; R13.10 Dysphagia, unspecified | CPT/HCPCS: 99214 ==

== ENCOUNTER → 2023-08-14 13:27 | Outpatient (BNVA) | payer MEDICARE, SELFPAY | PROVIDERS: PCP Nurse Practitioner Family; Visit Provider Family Medicine | DX: E06.1 Subacute thyroiditis; E55.9 Vitamin D deficiency, unspecified; R07.0 Pain in throat | CPT/HCPCS: 80048; 84439; 84443 ==

== ENCOUNTER → 2023-10-30 12:50 | Outpatient (BNVA) | payer MEDICARE, SELFPAY | PROVIDERS: PCP Nurse Practitioner Family; Visit Provider Family Medicine | DX: E55.9 Vitamin D deficiency, unspecified (principal); R53.82 Chronic fatigue, unspecified; E87.6 Hypokalemia; E06.1 Subacute thyroiditis | CPT/HCPCS: 80053; 82306; 82728; 83540; 83735; 84443; 85025; 85651; 86038; 86140; 86431 ==

== ENCOUNTER → 2023-12-05 13:38 | Outpatient (BNVA) | payer MEDICARE, SELFPAY | PROVIDERS: PCP Nurse Practitioner Family; Referring Provider Family Medicine; Visit Provider Nurse Practitioner Family | DX: L72.11 Pilar cyst (principal); L57.8 Other skin changes due to chronic exposure to nonionizing radiation | CPT/HCPCS: 99203 ==

== ENCOUNTER 2024-07-03 15:17 | Outpatient (CLI) | payer MEDICARE, SELFPAY ==
--- NOTE | 2024-07-03 15:30 | XR_ITS ---
WS: [id number] SCREENING DEXA SCAN [employer] CLINICAL INFORMATION: M81.0 - Age-related osteoporosis without current patholog... COMPARISON: None. FINDINGS: The L1-L4 bone mineral density measures 1.387 g/cm2. This corresponds to a T score score of 1.7 and Z score of 3.0. Left femoral neck bone mineral density measures 0.922 g/cm2. This corresponds to a T score of -0.7 and Z score of 0.9. Right femoral neck bone mineral density measures 0.906 g/cm2. This corresponds to a T score -0.8of and Z score of 0.8. Mean femoral neck bone mineral density measures 0.914 g/cm2. This corresponds to a T score of -0.7 and Z score of 0.8. XR/XR DEXA axial skeleton* [id number] IMPRESSION: Normal bone mineralization lumbar spine and femoral necks. Patient's FRAX calculated 10 year probability for major osteoporotic fracture i s 27.0% and osteoporotic hip fracture is 9.0%.
== END 2024-07-03 15:18 | disposition home or self-care (01) ==
PROVIDERS: PCP Family Medicine; Visit Provider Family Medicine
DX: M81.0 Age-related osteoporosis without current pathological fracture (principal)
CPT/HCPCS: 77080

== ENCOUNTER → 2024-07-08 12:44 | Outpatient (BNVA) | payer MEDICARE, SELFPAY | PROVIDERS: PCP Family Medicine; Referring Provider Family Medicine; Visit Provider Internal Medicine Rheumatology | DX: M35.3 Polymyalgia rheumatica (principal); Z79.899 Other long term (current) drug therapy; Z71.85 Encounter for immunization safety counseling | CPT/HCPCS: 36415; 80076; 82306; 82565; 85025; 85651; 86140; 86200; 86431; 86480; 86704; 86803; 87340; 99204 ==

== ENCOUNTER → 2024-08-27 12:28 | Outpatient (BNVA) | payer MEDICARE, SELFPAY | PROVIDERS: PCP Family Medicine; Visit Provider Registered Nurse Neonatal Intensive Care | DX: M25.511 Pain in right shoulder (principal) | CPT/HCPCS: 73030 ==

== ENCOUNTER → 2024-11-04 13:28 | Outpatient (BNVA) | payer MEDICARE, SELFPAY | PROVIDERS: PCP Family Medicine; Visit Provider Internal Medicine Rheumatology | DX: Z79.899 Other long term (current) drug therapy (principal); M35.3 Polymyalgia rheumatica; Z71.85 Encounter for immunization safety counseling | CPT/HCPCS: 36415; 80076; 82565; 85025; 85651; 86140; 99214 ==

== ENCOUNTER → 2024-12-04 13:05 | Outpatient (BNVA) | payer MEDICARE, SELFPAY | PROVIDERS: PCP Family Medicine; Visit Provider Nurse Practitioner Family | DX: L72.0 Epidermal cyst (principal); L91.8 Other hypertrophic disorders of the skin; D18.01 Hemangioma of skin and subcutaneous tissue; L81.4 Other melanin hyperpigmentation; L82.0 Inflamed seborrheic keratosis; R20.9 Unspecified disturbances of skin sensation; R20.8 Other disturbances of skin sensation; R23.8 Other skin changes; L29.89 Other pruritus; L53.8 Other specified erythematous conditions | CPT/HCPCS: 17110; 99213 ==

== ENCOUNTER 2024-12-08 11:46 | Outpatient (CLI) | payer MEDICARE, SELFPAY ==
[2024-12-08 12:51] LABS: Hematocrit 38.8 % (36-47); Hemoglobin 12.90 g/dL (11.27-16.99); Mean Corpuscular HGB Conc 33.2 g/dL (30-55); Mean Corpuscular Hemoglobin 33.0 pg (27-33); Mean Corpuscular Volume 99.2 fl (85-98); Nucleated Red Blood Cells % 0 %; Platelet Count 219 10^3/cmm (157-399); Red Blood Count 3.91 10^6/uL (3.85-5.65); White Blood Count 8.05 10^3/uL (3.29-11.43)
[2024-12-08 13:15] LABS: Alanine Aminotransferase 22 U/L (0-33); Albumin Level 4.2 g/dL (3.5-5.2); Alkaline Phosphatase 68 U/L (35-105); Aspartate Amino Transferase 22 U/L (0-32); Globulin 2.5 g/dL (1.3-4.6); Total Protein 6.7 g/dL (6.6-8.7)
== END 2024-12-08 11:47 | disposition home or self-care (01) ==
LOC: LAB 11:48
PROVIDERS: PCP Family Medicine; Visit Provider Internal Medicine Rheumatology
DX: Z79.899 Other long term (current) drug therapy (principal)
CPT/HCPCS: 36415; 80076; 82565; 85025; 85651; 86140

== ENCOUNTER → 2025-02-19 13:59 | Outpatient (BNVA) | payer MEDICARE, SELFPAY | PROVIDERS: PCP Family Medicine; Visit Provider Registered Nurse Neonatal Intensive Care | DX: J02.9 Acute pharyngitis, unspecified (principal) | CPT/HCPCS: 87880 ==

== ENCOUNTER → 2025-02-25 09:53 | Outpatient (BNVA) | payer MEDICARE, SELFPAY | PROVIDERS: PCP Family Medicine; Visit Provider Family Medicine | DX: Z00.00 Encounter for general adult medical examination without abnormal findings (principal); Z51.81 Encounter for therapeutic drug level monitoring; Z13.6 Encounter for screening for cardiovascular disorders; R63.4 Abnormal weight loss; E55.9 Vitamin D deficiency, unspecified | CPT/HCPCS: 80053; 80061; 82306; 83735; 85025; 86140 ==

== ENCOUNTER → 2025-03-10 10:26 | Outpatient (BNVA) | payer MEDICARE, SELFPAY | PROVIDERS: PCP Family Medicine; Referring Provider Family Medicine; Visit Provider Internal Medicine | DX: J47.9 Bronchiectasis, uncomplicated (principal); J44.89 Other specified chronic obstructive pulmonary disease; Z87.891 Personal history of nicotine dependence; J44.9 Chronic obstructive pulmonary disease, unspecified | CPT/HCPCS: 99214; Q3014 ==

== ENCOUNTER 2025-03-18 14:11 | Outpatient (CLI) | payer MEDICARE, SELFPAY ==
--- NOTE | 2025-03-18 14:18 | XR_ITS ---
WS: [id number] Chest 2 views, 03/18/2025 Clinical Data: cough Comparison: Portable chest, 02/28/2022 Findings: No nodules, masses or effusions are seen. The heart is normal. The pulmonary vascularity is not increased. No pneumonia or pneumothorax is seen. The aortic arch and descending thoracic aorta show mild tortuosity. XR/XR chest 2V* [id number] Impression: Atherosclerosis.
== END 2025-03-18 14:12 ==
PROVIDERS: PCP Family Medicine; Visit Provider Internal Medicine
DX: M35.3 Polymyalgia rheumatica (principal); Z79.899 Other long term (current) drug therapy; Z71.85 Encounter for immunization safety counseling; J42 Unspecified chronic bronchitis; I70.0 Atherosclerosis of aorta; J44.9 Chronic obstructive pulmonary disease, unspecified
CPT/HCPCS: 71046; 99215

== ENCOUNTER 2025-03-20 09:58 | Outpatient (CLI) | payer MEDICARE, SELFPAY ==
--- NOTE | 2025-03-20 10:20 | MM_ITS ---
WS: [id number] BILATERAL 3D TOMOSYNTHESIS DIGITAL SCREENING MAMMOGRAPHY WITH CAD CLINICAL INFORMATION: Screening mammogram HISTORY: Screening mammogram. No current complaints. COMPARISON: 2017 TECHNIQUE: Bilateral CC and MLO views. FINDINGS: Scattered fibroglandular densities bilaterally. No suspicious focal mass, asymmetry, calcifications, or architectural distortion. No evidence of malignancy. Incidental punctate calcifications MM/MM scr tomosynthesis [id number] IMPRESSION: DENSITY: There are scattered areas of fibroglandular density. BI-RADS: 2 - Benign. FOLLOW UP: 1 Year Follow-up Recommend return to annual screening mammography.
== END 2025-03-20 09:59 | disposition home or self-care (01) ==
LOC: RAD 10:01
PROVIDERS: PCP Family Medicine; Visit Provider Family Medicine
DX: Z12.31 Encounter for screening mammogram for malignant neoplasm of breast (principal); R92.323 Mammographic fibroglandular density, bilateral breasts; R92.1 Mammographic calcification found on diagnostic imaging of breast
CPT/HCPCS: 77063; 77067